=== PATIENT | female | born 1965 | race Caucasian/White ===

== ENCOUNTER 2018-01-27 14:43 | Observation (INO) | payer OTHER ==
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
[2018-01-27 15:05] LABS: PLATELET COUNT 223 10^3/uL (150-400)
[2018-01-27] MEDS ORDERED: NS 1,000 ML IV ONE (16:02)
[2018-01-27] MEDS ORDERED: GADOBUTROL 10 ML VIAL IVP ONE (16:12)
[2018-01-27] MEDS ORDERED: CYCLOBENZAPRINE 10 MG TAB PO ONE (18:33)
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
[2018-01-27] MEDS ORDERED: ONDANSETRON DISINTEGRATING 4 MG TAB PO PRN (20:00)
[2018-01-27] MEDS ORDERED: IBUPROFEN 600 MG TAB PO PRN (20:00)
[2018-01-27] MEDS ORDERED: ACETAMINOPHEN 325 MG TAB PO PRN (20:00)
[2018-01-27] MEDS: DIAZEPAM 5 MG TAB PO PRN (22:10)
[2018-01-28] MEDS: HYDROCODONE/APAP 5/325 TAB PO PRN ×2 (04:41→13:47)
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
[2018-01-28] MEDS ORDERED: ENOXAPARIN 40 MG/0.4 ML SYR SC SCH (09:00)
[2018-01-28] MEDS ORDERED: ESTROGEN SL SCH (09:30)
[2018-01-28] MEDS ORDERED: LEVOTHYROXINE 25 MCG TAB PO SCH (09:45)
[2018-01-28] MEDS ORDERED: LIOTHYRONINE SODIUM 5 MCG TAB PO SCH (09:45)
[2018-01-28] MEDS: DIAZEPAM 5 MG TAB PO PRN (11:01)
[2018-01-28 11:52] VITALS: BP 116/78
--- NOTE | 2018-01-28 14:06 | ASMTDCNOTE ---
Case Management Discharge Discharge Order Complete? Answers: Yes Patient to Obtain Answers: Other Notes: [facility] Medications Transportation Arranged Answers: FLO Mejía EMTKARMA Complete Answers: Yes Family Notified Answers: Yes Discharge Comments Notes: Patient transferred to [facility] per [facility]. All arrangements made by Musc[facility] - sent patient's medical record and imaging with her in the ambulane. BRIANNA Barr did RN to RN report. Dr Bell signed EMTALA. Patient and family notified of plan. Date Signed: 01/28/2018 02:05 PM Electronically Signed By:Katheryn Mercado RN
[2018-01-28] MEDS ORDERED: COMPOUNDED PROGESTERONE 200 MG PO SCH (21:00)
[2018-01-29] MEDS ORDERED: LIOTHYRONINE SODIUM 5 MCG TAB PO SCH (06:00)
== END 2018-01-28 14:30 | disposition short-term general hospital (02) ==
LOC: EDUNIT# → F3N 20:16
PROVIDERS: ADMIT Neurological Surgery; ATTEND Neurological Surgery
DX: S12.591A Other nondisplaced fracture of sixth cervical vertebra, initial encounter for closed fracture (principal); S12.691A Other nondisplaced fracture of seventh cervical vertebra, initial encounter for closed fracture; S22.32XA Fracture of one rib, left side, initial encounter for closed fracture; E86.9 Volume depletion, unspecified; E06.3 Autoimmune thyroiditis; V18.0XXA Pedal cycle driver injured in noncollision transport accident in nontraffic accident, initial encounter; Y92.838 Other recreation area as the place of occurrence of the external cause; Z79.890 Hormone replacement therapy
CPT/HCPCS: 70450; 70548; 72125; 72141; 72146; 73130; 92523; 96374; 97161; 97165; 99285; G0378; A9585; J2270